=== PATIENT | male | born 1990 | race Two or more races ===

== ENCOUNTER 2022-06-16 20:36 | Emergency (ER) | payer OTHER ==
[~2022-06-16] VITALS: Ht 177.8 cm; Wt 86.2 kg
[2022-06-16] MEDS ORDERED: TRAMADOR (21:08)
[2022-06-16] MEDS ORDERED: VALTREX1000 MG PO (21:44)
== END 2022-06-16 21:52 | disposition home or self-care (01) ==
LOC: ER 20:36
DX: A60.1 Herpesviral infection of perianal skin and rectum (principal)